=== PATIENT | female | born 1945 ===

== ENCOUNTER 2018-03-02 07:26 | Day surgery (SDC) | payer MEDICARE ==
[2018-03-02] MEDS ORDERED: Lactated Ringer's 500 ML IV ONE ×2 (09:19)
[2018-03-02] MEDS ORDERED: Etomidate 20 mg/10ml Inj IV ONE (09:19)
[2018-03-02] MEDS ORDERED: Lidocaine Hydrochloride 5 ML INJ ONE (09:20)
--- NOTE | 2018-03-02 09:21 | CP.SDSHP ---
Same Day Surgery H & P - History Proposed Procedure: COLONSCOPY Pre-Op Diagnosis: SEE NOTES - Previous Medical/Surgical History Cardiac: Hypertension Endocrine/Metabolic: Other Neuro: Other Misc: Other Pain: 4.Moderate Pain - Allergies Allergies: Allergies No Known Allergies Allergy (Verified 02/26/18 12:07) - Physical Exam General Appearance: N Vital Signs: Vital Signs 03/02/18 08:26 Temperature 98 F Pulse Rate 59 L Respiratory 19 Rate Blood Pressure 148/78 O2 Sat by Pulse 98 Oximetry Mental Status: Alert & Oriented x3 Neuro: WNL Heart: Other Lungs: WNL GI: Other - {Optional Preform as Required} Breast: WNL Abdomen: Other Rectal: Other Integument: WNL : WNL Ortho: WNL ENT: WNL - Impression Pt. Evaluated Today:Candidate for Anesthesia & Procedure: Yes - Date & Time Time: 09:21 Short Stay Discharge - Short Stay Discharge Admitting Diagnosis/Reason for Visit: CHANGE IN BOWEL HABIT Disposition: HOME/ ROUTINE
[2018-03-02] MEDS ORDERED: Propofol 10 mg/ml Inj (20 ML) ONE (09:25)
[2018-03-02 09:52] VITALS: TEMP 97
[2018-03-02] MEDS ORDERED: Belladonna-Phenobarbital PO ONE (09:55)
[2018-03-02 10:09] VITALS: O2SAT 100
[2018-03-02 10:42] VITALS: BP 150/66; PULSE 63; RESP 19
== END 2018-03-02 11:02 | disposition home or self-care (01) ==
LOC: C.ENDO 07:26
PROVIDERS: ATTEND Specialist
DX: R19.4 Change in bowel habit (principal); K64.8 Other hemorrhoids; I10 Essential (primary) hypertension
CPT/HCPCS: 45378; J2704; J7120

== ENCOUNTER 2018-03-09 07:09 | Day surgery (SDC) | payer MEDICARE ==
[2018-03-09] MEDS ORDERED: Propofol 10 mg/ml Inj (20 ML) ONE (08:34)
[2018-03-09] MEDS ORDERED: Lactated Ringer's 1,000 ML IV ONE ×4 (08:40)
--- NOTE | 2018-03-09 08:40 | CP.SDSHP ---
Same Day Surgery H & P - History Proposed Procedure: EGD Pre-Op Diagnosis: SEE NOTES - Previous Medical/Surgical History Cardiac: Hypertension Endocrine/Metabolic: Other Neuro: Other Misc: Other Pain: 4.Moderate Pain Previous Surgical History: HX. OF G. ULCER - Allergies Allergies: Allergies No Known Allergies Allergy (Verified 03/09/18 07:31) - Physical Exam General Appearance: N Vital Signs: Vital Signs 03/09/18 07:30 Temperature 97.5 F L Pulse Rate 60 Respiratory 19 Rate Blood Pressure 153/84 H O2 Sat by Pulse 97 Oximetry Mental Status: Alert & Oriented x3 Neuro: Other Heart: Other Lungs: WNL GI: Other - {Optional Preform as Required} Breast: WNL Abdomen: Other Rectal: Other Integument: WNL : WNL Ortho: WNL ENT: WNL - Impression Pt. Evaluated Today:Candidate for Anesthesia & Procedure: Yes - Date & Time Time: 08:40 Short Stay Discharge - Short Stay Discharge Admitting Diagnosis/Reason for Visit: GASTRIC ULCER, UNSP ACUTE OR CHRONIC, W /O HEMOR Disposition: HOME/ ROUTINE
[2018-03-09] MEDS ORDERED: Belladonna-Phenobarbital PO STA (08:41)
[2018-03-09 09:49] VITALS: RESP 14; O2SAT 99
[2018-03-09 10:42] VITALS: BP 127/52; PULSE 57; TEMP 97
== END 2018-03-09 10:20 | disposition home or self-care (01) ==
LOC: C.ENDO 07:09
PROVIDERS: ATTEND Specialist
DX: K25.9 Gastric ulcer, unspecified as acute or chronic, without hemorrhage or perforation (principal); K29.60 Other gastritis without bleeding; B96.81 Helicobacter pylori [H. pylori] as the cause of diseases classified elsewhere
CPT/HCPCS: 43239; 88305; 88342; J2001; J2704; J3010; J7120

== ENCOUNTER 2018-11-09 08:12 | Day surgery (SDC) | payer MEDICARE, OTHER ==
[2018-11-09 09:50] VITALS: BMI 33.8
[2018-11-09] MEDS ORDERED: Lactated Ringer's 1,000 ML IV ONE (11:50)
--- NOTE | 2018-11-09 11:56 | CP.SDSHP ---
Same Day Surgery H & P - History Proposed Procedure: COLONSCOPY Pre-Op Diagnosis: SEE NOTES - Previous Medical/Surgical History Cardiac: Hypertension Neuro: Other Misc: Other - Allergies Allergies: Allergies No Known Allergies Allergy (Verified 11/09/18 09:49) - Physical Exam General Appearance: N Vital Signs: Vital Signs 11/09/18 09:53 Temperature 98.4 F Pulse Rate 63 Respiratory 20 Rate Blood Pressure 136/51 L O2 Sat by Pulse 95 Oximetry Mental Status: Alert & Oriented x3 Neuro: WNL Heart: Other Lungs: WNL GI: Other - {Optional Preform as Required} Breast: WNL Abdomen: Other Rectal: Other Integument: WNL : WNL Ortho: Other ENT: WNL - Impression Pt. Evaluated Today:Candidate for Anesthesia & Procedure: Yes - Date & Time Time: 11:56 Short Stay Discharge - Short Stay Discharge Admitting Diagnosis/Reason for Visit: CHANGE IN BOWEL HABIT Disposition: HOME/ ROUTINE
[2018-11-09] MEDS ORDERED: Propofol 10 mg/ml Inj (20 ML) ONE (11:59)
[2018-11-09 12:45] VITALS: TEMP 97.7; O2SAT 3
[2018-11-09] MEDS ORDERED: Belladonna-Phenobarbital PO ONE (12:50)
[2018-11-09 13:22] VITALS: PULSE 61; RESP 18
[2018-11-09 13:30] VITALS: BP 108/63
== END 2018-11-09 13:40 | disposition home or self-care (01) ==
LOC: C.ENDO 08:12
PROVIDERS: ATTEND Specialist
DX: R19.4 Change in bowel habit (principal); K57.90 Diverticulosis of intestine, part unspecified, without perforation or abscess without bleeding; K64.8 Other hemorrhoids
CPT/HCPCS: 45380; 88305; J2704; J7120